=== PATIENT | female | born 1965 | race Caucasian/White ===

== ENCOUNTER 2018-09-10 05:02 | Emergency (ER) | payer OTHER ==
[~2018-09-10] VITALS: Ht 167.6 cm; Wt 106.7 kg
[2018-09-10 05:09] VITALS: Ht 167.6 cm; Wt 106.7 kg
[2018-09-10] MEDS ORDERED: ASPIRIN 81 MG TAB PO STA (05:44)
[2018-09-10] MEDS ORDERED: LIDOCAINE/MYLANTA 40 ML BTL PO STA (06:36)
[2018-09-10] MEDS ORDERED: BELLADONNA/PHENOBARBITAL TAB PO STA (06:36)
[2018-09-10] MEDS ORDERED: FAMOTIDINE 20 MG INJ IV STA (06:36)
[2018-09-10] MEDS ORDERED: NORepinephrine 8MG/250 ML (PMX 250 ML IV STA (06:39)
--- NOTE | 2018-09-10 08:09 | ERD ---
ER Documentation Chief Complaint Chief Complaint substernal CP,non-radiating,since 0430;epigastric pain,too,w/nausea;hx HTN HPI Extremely pleasant 53-year-old female presents to the emergency room with chest discomfort. She states that around 4 AM this morning she was woken up with some discomfort in the epigastrium radiating into her chest with a sour taste in the back of her throat. She states that she ate a large meal around 9 PM prior to going to sleep last night. She states that she is active with her job and denies any exertional symptoms exertional chest pain or exercise intolerance recently. No pleuritic pain. Patient did have a mild episode of nausea with this. She has only mild symptoms currently. She denies any pleuritic pain fevers chills or cough. ROS All systems reviewed and are negative except as per history of present illness. Medications Home Meds Active Scripts Sucralfate* (Carafate*) 1 Gm Tab, 1 GM PO WITH MEALS PRN for reflux symptoms, # 14 TAB Prov:MIRELLA ALANIZ MD 09/10/18 Famotidine* (Pepcid*) 20 Mg Tablet, 20 MG PO BID for 14 Days, TAB Prov:MIRELLA ALANIZ MD 09/10/18 Allergies Allergies: Coded Allergies: No Known Allergy (Unverified , 09/10/18) PMhx/Soc Medical and Surgical Hx: pt denies Medical Hx, pt denies Surgical Hx Hx Alcohol Use: No Hx Substance Use: No Hx Tobacco Use: No Smoking Status: Never smoker FmHx Family History: No diabetes, No coronary disease Physical Exam Vitals Vital Signs Date Temp Pulse Resp B/P (MAP) Pulse Ox O2 O2 Flow FiO2 Time Delivery Rate 09/10/18 78 18 160/90 99 Room Air 06:01 (113) 09/10/18 97.9 87 20 177/95 100 05:09 (122) Physical Exam General: Well developed, well nourished, no acute distress Head: Normocephalic, atraumatic. Eyes: Pupils equally reactive, EOM intact ENT: Moist mucous membranes Neck: Supple, no lymphadenopathy Respiratory: Lungs clear bilaterally, no distress Cardiovascular: RRR, no murmurs, rubs, or gallops Abdominal: Soft, non-tender, non-distended, no peritoneal signs : Deferred MSK: No edema, no unilateral swelling, 5/5 strength Neurologic: Alert and oriented, moving all extremities, normal speech, no focal weakness, no cerebellar signs Skin: No rash Psych: Normal mood Result Diagram: 09/10/18 0549 09/10/18 0549 Results 24 hrs Laboratory Tests Test 09/10/18 05:49 09/10/18 08:56 White Blood Count 8.5 10^3/ul Red Blood Count 4.16 10^6/ul Hemoglobin 12.0 g/dl Hematocrit 38.9 % Mean Corpuscular Volume 93.5 fl Mean Corpuscular Hemoglobin 28.8 pg Mean Corpuscular Hemoglobin Concent 30.8 g/dl Red Cell Distribution Width 13.2 % Platelet Count 302 10^3/UL Mean Platelet Volume 10.1 fl Immature Granulocytes % 0.800 % Neutrophils % 75.9 % Lymphocytes % 13.6 % Monocytes % 8.0 % Eosinophils % 1.5 % Basophils % 0.2 % Nucleated Red Blood Cells % 0.0 /100WBC Immature Granulocytes # 0.070 10^3/ul Neutrophils # 6.4 10^3/ul Lymphocytes # 1.2 10^3/ul Monocytes # 0.7 10^3/ul Eosinophils # 0.1 10^3/ul Basophils # 0.0 10^3/ul Nucleated Red Blood Cells # 0.0 10^3/ul Sodium Level 140 mmol/L Potassium Level 4.3 mmol/L Chloride Level 105 mmol/L Carbon Dioxide Level 22 mmol/L Anion Gap 13 Blood Urea Nitrogen 10 mg/dl Creatinine 0.57 mg/dl Est Glomerular Filtrat Rate mL/min > 60 mL/min Glucose Level 102 mg/dl Calcium Level 9.1 mg/dl Troponin I < 0.012 ng/ml < 0.012 ng/ml Current Medications Medications Dose Sig/Henrik Start Time Status Last (Trade) Ordered Route PRN Stop Time Admin Dose Reason Admin Aspirin 162 mg ONCE STAT 09/10/18 DC 09/10/18 (Aspirin) PO 05:44 09/10/18 05:57 05:45 Famotidine 20 mg ONCE STAT 09/10/18 DC 09/10/18 (Pepcid Iv) IV 06:36 09/10/18 07:51 06:38 40 ml ONCE STAT 09/10/18 DC 09/10/18 Miscellaneous PO 06:36 09/10/18 07:52 Medication 06:38 (Gi Cocktail (2)) Belladonna/ 2 tab ONCE STAT 09/10/18 DC 09/10/18 Phenobarbital PO 06:36 09/10/18 07:51 () 06:38 250 ml @ ONCE STAT 09/10/18 DC Norepinephrin 7.5 mls/hr IV 06:39 09/10/18 e 07:28 Procedures/MDM EKG, MONITORS, & DIAGNOSTIC IMAGING: EKG: I reviewed and interpreted a 12-lead EKG. Rhythm: Normal sinus rhythm ST Changes: No contiguous ST segment elevations T waves: No contiguous T wave inversions Impression: No evidence of acute cardiac ischemia Repeat EKG: EKG: I reviewed and interpreted a 12-lead EKG. Rhythm: Normal sinus rhythm ST Changes: No contiguous ST segment elevations T waves: No contiguous T wave inversions Impression: No evidence of acute cardiac ischemia Chest x-ray: I reviewed and interpreted a 1 view of the chest Mediastinum: No enlargement Cardiac silhouette: No cardiomegaly Airspace: Clear lung sales bilaterally without evidence of pneumothorax Bones: No evidence of fracture PROCEDURES: None LAB INTERPRETATION: Negative troponin x 2 MEDICAL DECISION MAKING: The patient's history, physical exam and clinical presentation is most consistent with likely GI process. The patient had a heavy meal late in the evening and woke up with these symptoms. The patient did describe some chest pain she has recent history that is not suggestive of exertional symptoms. Patient has limited risk profile otherwise. I doubt this is consistent with acute coronary syndrome though given the patient's age EKG and troponin would be reasonable. No signs or symptoms concerning for pulmonary embolism or dissection. Based on the patient's clinical exam and history and risk factors, I have a much lower clinical concern for pulmonary embolism, acute aortic dissection, pneumothorax, pneumonia, cardiac tamponade HEART Score: 2 MACE Rate: 0.9-1.7% Shared Decision Making: We had a conversation regarding risk stratification, MACE rate, and the risks, benefits, alternatives of disposition planning options. Disposition planning: We discussed inpatient versus outpatient measures. Patient prefers outpatient. Serial enzyme in the emergency room setting appropriate. ER COURSE: * Patient given GI cocktail with improved symptomatology * Symptoms improved. Troponin negative x2. At this point the patient can be discharged home given her stratification as documented above. CONSULTATION: None DISPOSITION PLAN: The patient does not have an identifiable emergent medical condition that warrants inpatient hospitalization at this time. The patient is deemed safe for discharge with outpatient follow-up. We discussed follow up with the patient's primary care doctor within 24 to 48 hours as needed. We also discussed return to the emergency room for worsening s ymptoms or worsening condition. Outpatient referral: Patient can follow-up with primary care physician if symptoms persist. Discharge Medications: Pepcid and sucralfate Departure Diagnosis: Primary Impression: Dyspepsia Additional Impression: Chest pain, atypical Condition: Stable MIRELLA ALANIZ MD Sep 10, 2018 08:09
[2018-09-10] MEDS ORDERED: SUCR1TAB56 PO (09:58)
[2018-09-10] MEDS ORDERED: FAMO-96 PO (09:58)
[2018-09-10 10:30] VITALS: BP 150/95; PULSE 75; RESP 18
== END 2018-09-10 10:41 | disposition home or self-care (01) ==
LOC: E/R 05:02
DX: R10.13 Epigastric pain (principal); R07.89 Other chest pain
CPT/HCPCS: 36415; 71045; 80048; 84484; 85025; 93005; 96374; Z7502; Z7610